=== PATIENT | female | born 1960 | race Caucasian/White ===

== ENCOUNTER 2017-04-25 19:01 | Emergency (ER) | payer SELFPAY ==
[2017-04-25 19:16] VITALS: TEMP 97.6
[2017-04-25 19:58] LABS: RBC URINE 2 /hpf (0-3); URINE BACTERIA OCC (<OCC); URINE BILIRUBIN NEGATIVE (NEGATIVE); URINE BLOOD 2+ (NEGATIVE); URINE COLOR Colorless (YELLOW); URINE GLUCOSE (UA) NORMAL (Normal); URINE KETONE NEGATIVE (NEGATIVE); URINE LEUKOCYTE ESTERASE 2+ Leu/uL (Negative); URINE PROTEIN NEGATIVE (NEGATIVE); URINE UROBILINOGEN NORMAL mg/dL (0.2-1.0); WBC URINE 11 /hpf (0-5)
--- NOTE | 2017-04-25 20:44 | C.PDOC ---
History Of Present Illness Patient is a 57 y/o female who presents to the ED with complaints of dysuria and hematuria beginning today. Patient also notes vaginal itching. Patient reports to be compliant with DM medication, and admits sugar reading today was 115 mmol/L. Denies any vaginal discharge, abdominal pain, back pain, fever, nausea, or vomiting. No other physical complaints at this time. Time Seen by Provider: 04/25/17 19:21 Chief Complaint (Nursing): Female Genitourinary History Per: Patient, Family (daughter) History/Exam Limitations: no limitations Onset/Duration Of Symptoms: Hrs (onset today) Current Symptoms Are (Timing): Still Present Associated Symptoms: Urinary Symptoms (dysuria and hematuria). denies: Fever, Nausea, Vomiting, Back Pain Recent travel outside of the [place]: No Past Medical History Reviewed: Historical Data, Nursing Documentation, Vital Signs Vital Signs: Last Vital Signs Temp 97.6 F 04/25/17 19:15 Pulse 81 04/25/17 20:56 Resp 18 04/25/17 20:56 BP 124/75 04/25/17 20:56 Pulse Ox 100 04/25/17 21:26 - Medical History PMH: Diabetes, HTN Surgical History: No Surg Hx Family History: States: No Known Family Hx - Social History Hx Alcohol Use: No Hx Substance Use: No - Immunization History Hx Tetanus Toxoid Vaccination: No Hx Influenza Vaccination: No Hx Pneumococcal Vaccination: No Review Of Systems Constitutional: Negative for: Fever Gastrointestinal: Negative for: Nausea, Vomiting, Abdominal Pain Genitourinary: Positive for: Dysuria, Hematuria, Other (vaginal itching). Negative for: Vaginal Discharge Musculoskeletal: Negative for: Back Pain Physical Exam - Physical Exam Appears: Well, Non-toxic, No Acute Distress Skin: Normal Color, Warm, Dry Head: Atraumatic, Normacephalic Eye(s): bilateral: Normal Inspection, EOMI Nose: Normal Oral Mucosa: Moist Neck: Normal ROM, Supple Chest: Symmetrical Cardiovascular: Rhythm Regular, No Murmur Respiratory: Normal Breath Sounds, No Rales, No Rhonchi, No Wheezing Gastrointestinal/Abdominal: Soft, No Tenderness, No Distention, No Guarding, No Rebound Pelvic: Normal External Exam, Normal Speculum Exam, No Vaginal Bleeding, No Vaginal Discharge, No Cervical Motion Tenderness Extremity: Normal ROM Neurological/Psych: Oriented x3, Normal Speech, Normal Cognition ED Course And Treatment O2 Sat by Pulse Oximetry: 100 Progress Note: Plan: Urine culture ordered. Discussed signs of concern, glucose control, and follow up with PMD in 1-2 days or return to ER if symptoms perisst worsen. Disposition - Disposition Referrals: Clinic,Med Surg [Primary Care Provider] - Disposition: HOME/ ROUTINE Disposition Time: 20:41 Condition: STABLE Additional Instructions: Follow up with primary medical doctor in 1-3 days without fail for further evaluation. Take medications as prescribed. Return to the emergency department at any time if symptoms persist or worsen. Prescriptions: Fluconazole [Diflucan] 150 mg PO DAILY #1 tab Nitrofurantoin Macrocrystals [Macrobid] 1 cap PO BID #14 cap Instructions: Urinary Tract Infection in Women (ED) Forms: [facility] (Bulgarian) - Clinical Impression Clinical Impression: UTI (urinary tract infection) - Scribe Statement The provider has reviewed the documentation as recorded by the Scribe Liza Concepcion All medical record entries made by the Scribe were at my direction and personally dictated by me. I have reviewed the chart and agree that the record accurately reflects my personal performance of the history, physical exam, medical decision making, and the department course for this patient. I have also personally directed, reviewed, and agree with the discharge instructions and disposition.
[2017-04-25 20:57] VITALS: BP 124/75; PULSE 81; RESP 18
[2017-04-25 21:12] VITALS: O2SAT 100
== END 2017-04-25 21:04 | disposition home or self-care (01) ==
LOC: C.ER 19:01 → SUPCPDRO 19:01 → C.ER 21:04
DX: N39.0 Urinary tract infection, site not specified (principal); E11.9 Type 2 diabetes mellitus without complications; I10 Essential (primary) hypertension